=== PATIENT | female | born 1950 | race Caucasian/White ===

== ENCOUNTER 2018-03-11 13:26 | Day surgery (SDC) | payer OTHER ==
[~2018-03-11] VITALS: Ht 167.6 cm; Wt 60.3 kg
[~2018-03-11 13:26] MED LIST: CALTTAB6 PO; LIDOCAINE 2% INJ 100 MG/5 ML SDV (FOR ANES.) As Ordered ONE; LUTE20TA PO; MULT1TAB10 PO; NS 1,000 ML IV ONE; PROPOFOL 200 MG/20 ML VIAL As Ordered ONE
[2018-03-11] MEDS ORDERED: PROPOFOL 200 MG/20 ML VIAL As Ordered ONE (14:08)
--- NOTE | 2018-03-11 14:16 | ROOR ---
Patient Name: Galina Galaviz Procedure Date: 03/11/2018 1:50 PM Date of : 1950 Age: 67 Room: [facility] Gender: Female Note Status: Finalized Procedure: Total Colonoscopy to Anastomosis + Cold snare Polypectomy Indications: High risk colon cancer surveillance: Personal history of colonic polyps, Last colonoscopy: 2009 Providers: Ranjeet Velazco MD Referring MD: Requesting Provider: Medicines: Monitored Anesthesia Care Complications: No immediate complications. Procedure: Pre-Anesthesia Assessment: - The heart rate, respiratory rate, oxygen saturations, blood pressure, adequacy of pulmonary ventilation, and response to care were monitored throughout the procedure. The Colonoscope was introduced through the anus and advanced to the ileocolonic anastomosis. The colonoscopy was performed without difficulty. The patient tolerated the procedure well. The quality of the bowel preparation was excellent. Findings: The perianal and digital rectal examinations were normal. Non-bleeding internal hemorrhoids were found during retroflexion. The hemorrhoids were medium-sized and Grade I (internal hemorrhoids that do not prolapse). A small polyp was found in the hepatic flexure. The polyp was sessile. The polyp was removed with a cold snare. Resection and retrieval were complete. The exam was otherwise without abnormality on direct and retroflexion views. Impression: - Non-bleeding internal hemorrhoids. - One small polyp at the hepatic flexure, removed with a cold snare. Resected and retrieved. - The examination was otherwise normal on direct and retroflexion views. - The examination was otherwise normal. Recommendation: - Patient has a contact number available for emergencies. The signs and symptoms of potential delayed complications were discussed with the patient. Return to normal activities tomorrow. Written discharge instructions were provided to the patient. - Discharge patient to home. - Continue present medications. - Await pathology results. - Telephone GI clinic for pathology results in 1 week. - Repeat colonoscopy in 5 years for surveillance based on pathology results. - Return to referring physician. - Check Portal Online for Path Results.([email or web address] - The findings and recommendations were discussed with the patient's family. Ranjeet Velazco MD Ranjeet Velazco MD 03/11/2018 2:16:05 PM This report has been signed electronically. Number of Addenda: 0 Note Initiated On: 03/11/2018 1:50 PM Estimated Blood Loss: Estimated blood loss: none.
[2018-03-11 14:52] VITALS: BP 132/69
== END 2018-03-11 14:58 | disposition home or self-care (01) ==
LOC: M OPP 13:26
PROVIDERS: ATTEND Internal Medicine Gastroenterology
DX: Z12.11 Encounter for screening for malignant neoplasm of colon (principal); K64.0 First degree hemorrhoids; D12.3 Benign neoplasm of transverse colon; Z86.010 Personal history of colon polyps; I34.1 Nonrheumatic mitral (valve) prolapse; F41.9 Anxiety disorder, unspecified; F32.9 Major depressive disorder, single episode, unspecified; G43.909 Migraine, unspecified, not intractable, without status migrainosus; Z88.0 Allergy status to penicillin; Z88.2 Allergy status to sulfonamides; Z78.0 Asymptomatic menopausal state; Z87.891 Personal history of nicotine dependence

== ENCOUNTER 2021-10-10 11:01 | Day surgery (SDC) | payer MEDICARE, OTHER ==
[~2021-10-10] VITALS: Ht 167.6 cm; Wt 60.3 kg
[~2021-10-10 11:01] MED LIST changes: -LIDOCAINE 2% INJ 100 MG/5 ML SDV (FOR ANES.) As Ordered ONE; +LUTE20CA8 PO; +METO1TAB32 PO; +MULT-90 PO; -PROPOFOL 200 MG/20 ML VIAL As Ordered ONE
[2021-10-10] MEDS ORDERED: propofoL 200 MG/20 ML VIAL As Ordered ONE (12:31)
[2021-10-10] MEDS ORDERED: LIDOCAINE 2% MDV 20ML VIAL As Ordered ONE (12:32)
[2021-10-10 13:09] VITALS: BP 142/69
== END 2021-10-10 13:11 | disposition home or self-care (01) ==
LOC: M OPP 11:01
PROVIDERS: ATTEND Internal Medicine Gastroenterology
DX: Z12.11 Encounter for screening for malignant neoplasm of colon (principal); Z86.010 Personal history of colon polyps; K57.30 Diverticulosis of large intestine without perforation or abscess without bleeding; K64.0 First degree hemorrhoids; Z79.899 Other long term (current) drug therapy; Z88.0 Allergy status to penicillin; Z88.1 Allergy status to other antibiotic agents; Z86.79 Personal history of other diseases of the circulatory system